=== PATIENT | male | born 1930 | race Caucasian/White ===

== ENCOUNTER 2019-02-24 10:03 | Emergency (ER) | payer OTHER ==
[~2019-02-24] VITALS: Ht 172.7 cm; Wt 64.4 kg
--- NOTE | 2019-02-24 10:20 | NUR ---
PATIENT [place] [facility], FROM HOME, DUE TO SYNCOPE, ASSITED FALL, -KO, BS 111
[2019-02-24 10:30] LABS: BASOPHILS # (AUTO) 0.1 /CMM (0.0-0.2); BASOPHILS % (AUTO) 0.6 % (0.0-2.0); EOSINOPHILS % (AUTO) 0.3 % (0.0-6.0); HEMATOCRIT 36 % (39-51); HEMOGLOBIN 11.8 g/dL (13.5-17.5); LYMPHOCYTES # (AUTO) 0.7 /CMM (0.8-4.8); LYMPHOCYTES % (AUTO) 5.1 % (20.0-44.0); MEAN CORPUSCULAR HGB CONC 33 g/dl (31.0-36.0); MEAN CORPUSCULAR VOLUME 96 fL (80-96); MONOCYTES % (AUTO) 7.6 % (2.0-12.0); NEUTROPHILS # (AUTO) 11.4 /CMM (1.8-8.9); NEUTROPHILS % (AUTO) 86.4 % (43.0-81.0); PLATELET COUNT (AUTO) 366 /CMM (150-450); WHITE BLOOD COUNT (AUTO) 13.2 K/uL (4.3-11.0)
[2019-02-24 10:38] LABS: CALCIUM, SERUM 9.4 mg/dL (8.5-10.1); CARBON DIOXIDE 21 mmol/L (21-32); CHLORIDE 91 mmol/L (98-107); GLUCOSE 103 mg/dL (74-106); POTASSIUM 4.7 mmol/L (3.5-5.1); SODIUM SERUM 124 mmol/L (136-145); UREA NITROGEN, BLOOD 42 mg/dL (7-18)
[2019-02-24 10:44] LABS: ALANINE AMINOTRANSFERASE 131 U/L (12-78); ALBUMIN 2.5 g/dL (3.4-5.0); ALKALINE PHOSPHATASE 566 U/L (46-116); ASPARTATE AMINOTRANSFERASE 156 U/L (15-37); BILIRUBIN,DIRECT 0.7 mg/dL (0.0-0.2); BILIRUBIN,TOTAL 1.3 mg/dL (0.2-1.0); TOTAL PROTEIN, SERUM 6.4 g/dL (6.4-8.2)
[2019-02-24 10:59] LABS: APPEARANCE,URINE Slightly Cloudy (CLEAR); BILIRUBIN,URINE SMALL (NEGATIVE); BLOOD, URINE Large Ery/uL (NEGATIVE); COLOR,URINE Yellow (YELLOW); KETONES,URINE Trace (NEGATIVE); LEUKOCYTE ESTERASE ,URINE Small (NEGATIVE); NITRITE, URINE Negative (NEGATIVE); PROTEIN,URINE >=300 mg/dl (NEGATIVE); UGLUCOSE Negative (NEGATIVE); UROBILINOGEN,URINE 0.2 EU/dL (0.2)
[2019-02-24 11:08] LABS: BACTERIA,URINE Rare /HPF (None Seen); RBC,URINE 80-100 /HPF (0-2); SQUAMOUS EPITHELIAL CELL,UR Few /HPF (None Seen)
[2019-02-24] MEDS ORDERED: IV NS 0.9% 1,000 ML BAG IV ONE (11:30)
[2019-02-24] MEDS ORDERED: ACETAMINOPHEN ES 500 MG TABLET ONE (11:42)
[2019-02-24] MEDS ORDERED: ACETAMINOPHEN ES 500 MG TABLET PO ONE (12:00)
--- NOTE | 2019-02-24 12:24 | NUR ---
Paged charlotte guardadop
[2019-02-24] MEDS ORDERED: CEFTRIAXONE 1GM BAG (ER ONLY) 50 ML IV ONE (12:42)
[2019-02-24] MEDS ORDERED: CEFTRIAXONE 1GM BAG (ER ONLY) 1 GM/50 ML PIGGYBACK IV ONE (13:00)
[2019-02-24] MEDS ORDERED: MORPHINE SULFATE INJ 2 MG/ML DISP.SYRIN ONE (13:56)
[2019-02-24] MEDS ORDERED: MORPHINE SULFATE INJ 2 MG/ML DISP.SYRIN IV ONE (14:00)
--- NOTE | 2019-02-24 14:42 | NUR ---
Pt accepted [facility] Room 5112 Number for report [phone] Accepting is Jaquelin ETA for acls transport 45min
--- NOTE | 2019-02-24 16:19 | NUR ---
Report given to Robert HOPE for continuity of care
[2019-02-24 16:20] VITALS: BP 119/69
--- NOTE | 2019-02-24 16:30 | NUR ---
PATIENT LEFT VIA GURNEY IN STABLE CONDITION. NO ACUTE DISTRESS. DENIES PAIN OR DISCOMFORT.
== END 2019-02-24 16:30 | disposition short-term general hospital (02) ==
LOC: ER 10:09
DX: R55 Syncope and collapse (principal); E87.1 Hypo-osmolality and hyponatremia; I10 Essential (primary) hypertension; N40.0 Benign prostatic hyperplasia without lower urinary tract symptoms; F32.9 Major depressive disorder, single episode, unspecified; Z86.718 Personal history of other venous thrombosis and embolism
CPT/HCPCS: 36415; 70450; 71045; 80048; 80076; 81001; 84484; 85025; 85730; 87086; 93005; 96361; 96365; 96375; 99285; J0696; J2270; 81000-TC